=== PATIENT | male | born 1970 | race Two or more races ===

== ENCOUNTER 2025-03-06 23:49 | Emergency (ER) | payer OTHER ==
[~2025-03-06] VITALS: Ht 177.8 cm; Wt 103.4 kg
[~2025-03-06 23:49] MED LIST: SYNTHROID175 MCG; TENORMIN50 MG; TUSSI-PRES LIQ118 ML PO
[2025-03-07] MEDS ORDERED: [UNRECOGNIZED DRUG - OTHER] (00:27)
[2025-03-07] MEDS ORDERED: PROMETHAZINE HCL 50 MG/ML AMPUL IM STA (00:52)
[2025-03-07] MEDS ORDERED: FAMOTIDINE/PF 20 MG/2 ML VIAL IV PUSH STA (00:52)
[2025-03-07] MEDS ORDERED: 0.9 % SODIUM CHLORIDE 1,000 ML IV ONE (01:00)
[2025-03-07 01:28] LABS: BASO % 0.4 % (0.1-1.2); EOS # 0.15 (0.04-0.54); EOS % 1.1 % (0.7-7.0); LYMPH # 1.74 (1.18-3.74); LYMPH % 12.8 % (19.3-53.1); MEAN PLATELET VOLUME 10.00 fl (9.4-12.4); MONO # 0.83 (0.24-0.82); MONO % 6.1 % (4.7-12.5); NEUT # 10.77 (1.56-6.13); NEUT % 79.2 % (34.0-71.1); RED CELL DISTRIBUTION WIDTH 13.6 % (11.6-14.4)
[2025-03-07 02:04] LABS: ALT/SGPT 46.0 U/L (12-78); AST/SGOT 22.0 U/L (15-37); BILIRUBIN TOTAL 0.73 mg/dL (0.3-1.2); BUN CREA RATIO 17.0 (7.0-25.0); CREATININE SERUM 1.15 mg/dL (0.70-1.30); GFR 66.78; GLOBULINA 3.4 G/DL (2.4-3.5); GLUCOSE FASTING 189.0 mg/dL (65-100); OSMOLALITY SERUM 287.0 MOSM/KG (275-295)
[2025-03-07 03:25] LABS: URINE APPEARANCE Clear; URINE BILIRRUBIN Negative (NEGATIVE); URINE BLOOD Trace; URINE COLOR Yellow; URINE GLUCOSE Negative (NEGATIVE); URINE KETONE Trace (NEGATIVE); URINE LEUKOCYTE Negative; URINE NITRATE Negative; URINE PROTEIN Negative (NEGATIVE); URINE UROBILINOGEN 1.0 E.U./dl
[2025-03-07 03:28] LABS: URINE BACTERIA 10.8 uL (0.0-1933); URINE EPITHELIAL CELLS 5.6 uL (0.0-38.8); URINE RBC 40.1 uL (0.0-20.8); URINE WBC 2.4 uL (0.0-23.2)
[2025-03-07 04:22] LABS: URINE CAST 0.29 uL (0.0-1.40)
[2025-03-07 04:24] LABS: URINE CRYSTALS MODERATE /HPF
[2025-03-07 04:25] LABS: URINE MUCUS SCANT
[2025-03-07] MEDS ORDERED: ZOFRAN8 MG PO (04:51)
[2025-03-07] MEDS ORDERED: PEPCID40 MG PO (04:51)
== END 2025-03-07 04:58 ==
LOC: ER 23:50
PROVIDERS: General Practice
DX: R11.0 Nausea (principal); R10.13 Epigastric pain; R10.9 Unspecified abdominal pain; I10 Essential (primary) hypertension; E11.9 Type 2 diabetes mellitus without complications